=== PATIENT | male | born 1965 | race Caucasian/White ===

== ENCOUNTER → 2018-11-12 | Outpatient (CLI) | payer OTHER ==
[~2018-11-12] MED LIST: AMLO5TAB2 PO; CLIN300C3 PO; DIAZ10TA PO; DULO30CA PO; HYDR-3714 PO; HYDR12.56 PO; LISI1TAB6 PO; LISI20TA PO; MUPI22OI29 NS; OXYC-12 PO; ROPI2TAB4 PO; SULF-222 PO
--- NOTE | 2018-11-12 11:42 | Diagnostic Imaging Report ---
PROCEDURE: CT head and CT cervical spine without contrast. TECHNIQUE: Multiple contiguous axial images were obtained through the brain and cervical spine without the use of intravenous contrast. Sagittal and coronal reformations through the cervical spine were then performed. INDICATION: Head injury at midnight. Hit head now with neck pain and cannot turn head to the right. CORRELATION STUDY: CT head 02/15/2015 FINDINGS: CT HEAD: Ventricles and sulci are unremarkable. Normal sow white differentiation. No suggestion for edema. No intracranial hemorrhage or midline shift. The bony calvarium intact. There is significant mucosal thickening and air-fluid level at the left maxillary sinus. There is significant opacification multiple ethmoid air cells left greater than right. There is also significant mucosal thickening of the left frontal sinus. Sphenoid sinus relatively clear. Mastoid air cells appearing unremarkable. CT CERVICAL SPINE: Reformatted images are relatively normal in alignment to be present. There is no evidence for acute fracture. There is slight loss of height at the C4, C5 and C6 vertebral bodies as well as slight loss of height superior C7 vertebral body appearing to be nonacute and chronic. There is a fusion across the disc space and facet joints at the C2-C3 level with a unibody present. The odontoid intact. Multilevel disc space narrowing is present most pronounced C4-C5, C5-C6 and C6-C7 levels. Endplate spurring and osteophyte formation noted at C3-C4, C4-C5, C5-C6 and C6-C7 levels with some osteal encroachment upon the neural foramina greatest on the right. Additionally, there area scattered air is asymmetric hypertrophic facet arthropathy greatest on the right. There is presence of scattered bilateral cervical lymph nodes. The visualized lung apices are unremarkable. IMPRESSION: CT HEAD: 1. Negative for acute traumatic intracranial abnormality. 2. Rather extensive sinusitis disproportion greater left side. CT CERVICAL SPINE: 1. Negative for acute fracture or traumatic subluxation. 2. Rather pronounced multilevel cervical spondylosis along with hypertrophic facet arthropathy. This does result in some disproportionate mild foraminal narrowing on the right. Dictated by: Dictated on workstation # [id number]
== END ==
LOC: RAD 10:04
PROVIDERS: ATTEND Nurse Practitioner Family
DX: S09.90XA Unspecified injury of head, initial encounter (principal); J32.9 Chronic sinusitis, unspecified; M47.812 Spondylosis without myelopathy or radiculopathy, cervical region; M46.82 Other specified inflammatory spondylopathies, cervical region; M48.02 Spinal stenosis, cervical region; I10 Essential (primary) hypertension; V83.5XXA Driver of special industrial vehicle injured in nontraffic accident, initial encounter
CPT/HCPCS: 70450; 72125

== ENCOUNTER → 2019-11-17 | Outpatient (CLI) | payer OTHER ==
--- NOTE | 2019-11-17 10:44 | Diagnostic Imaging Report ---
INDICATION: Influenza. TIME OF EXAM: 10:31 a.m. COMPARISON: Correlation is made with prior chest from 01/12/2014. FINDINGS: Heart size is normal. There is a zone of linear density in the left base suggestive of atelectasis. No infiltrates are seen. The pulmonary vascularity is normal. No effusion or pneumothorax is identified. IMPRESSION: Left basilar subsegmental atelectasis. Dictated by: Dictated on workstation # [id number]
== END ==
LOC: RAD 10:06
PROVIDERS: ATTEND Family Medicine
DX: J98.11 Atelectasis (principal); J09.X2 Influenza due to identified novel influenza A virus with other respiratory manifestations
CPT/HCPCS: 71046

== ENCOUNTER → 2021-03-26 | Outpatient (CLI) | payer OTHER ==
--- NOTE | 2021-03-26 17:33 | Diagnostic Imaging Report ---
INDICATION: Cough and wheezing and dyspnea. PA and lateral chest obtained at 05:29 p.m. Heart and mediastinal silhouette are normal in appearance. There is hyperinflation compatible with COPD. There is some minimal left basilar atelectasis or scarring. There is no consolidation or pleural fluid or pneumothorax. IMPRESSION: Hyperinflation compatible with COPD with some minimal left basilar scarring or atelectasis. No consolidation or pleural fluid collection. Dictated by: Dictated on workstation # [id number]
== END ==
LOC: RAD 16:40
PROVIDERS: ATTEND Family Medicine
DX: J98.11 Atelectasis (principal)
CPT/HCPCS: 71046

== ENCOUNTER → 2022-02-15 | Outpatient (CLI) | payer OTHER ==
--- NOTE | 2022-02-15 15:01 | Diagnostic Imaging Report ---
PROCEDURE: US carotid duplex, bilateral. TECHNIQUE: Multiple real-time grayscale images were obtained over the carotid arteries in various projections, bilaterally. Additional spectral analysis and color Doppler duplex images were also obtained. INDICATION: Right carotid bruit. There is mild plaque in both carotid bulbs and right carotid bifurcation. Velocities are normal bilaterally. No velocity elevation or stenosis is seen. Both vertebral arteries show antegrade flow. IMPRESSION: Mild bilateral carotid plaque. There is no evidence of a hemodynamically significant stenosis. Parameters based on the consensus panel Laird-Scale and Doppler ultrasound criteria published July 2003, Radiology, Volume 229. DOPPLER (peak systolic velocity M/S Right Left CCA .97 1.22 ICA Proximal .81 .64 ICA Mid .71 .55 ICA Distal .58 .69 RATIO .83 .56 ECA 1.57 1.07 VERT .40 .51 Dictated by: Dictated on workstation # [id number]
== END ==
LOC: RAD 12:00
PROVIDERS: ATTEND Family Medicine
DX: I65.23 Occlusion and stenosis of bilateral carotid arteries (principal)
CPT/HCPCS: 93880

== ENCOUNTER → 2022-10-30 | Outpatient (CLI) | payer OTHER ==
--- NOTE | 2022-10-30 18:26 | Diagnostic Imaging Report ---
CLINICAL INDICATION: Patient status post fall with pain in the right anterior chest. EXAMS: Chest x-ray AP and lateral views. X-ray bilateral rib series. COMPARISONS: CT scan of the abdomen and pelvis without contrast dated 04/01/2015. FINDINGS: LUNGS/ PLEURA: Lungs are clear. There is no pneumothorax. There is no pleural effusion. MEDIASTINUM: Unremarkable. PULMONARY VASCULATURE: Unremarkable. HEART: Unremarkable. BONES/ EXTRATHORACIC SOFT TISSUE: Stable chronic compression deformity involving left side of the L2 vertebra. There are degenerative spurs involving the thoracic and lumbar spine. There are multiple calcifications overlying the bilateral renal shadows which is also seen on comparison CT scan. RIB SERIES: Unremarkable with no rib fracture or abnormality. IMPRESSION: 1: There is no radiographic evidence of acute cardiopulmonary process. 2: There are no rib fractures. 3: Multiple bilateral renal stones are again seen. 4: Stable chronic fracture of the L2 vertebra. Dictated by: Dictated on workstation # [id number]
== END ==
LOC: RAD 16:29
PROVIDERS: ATTEND Registered Nurse Critical Care Medicine
DX: N20.0 Calculus of kidney (principal); M25.512 Pain in left shoulder; W18.39XD Other fall on same level, subsequent encounter; Y92.093 Driveway of other non-institutional residence as the place of occurrence of the external cause; M70.21 Olecranon bursitis, right elbow; M25.721 Osteophyte, right elbow; G25.81 Restless legs syndrome; I10 Essential (primary) hypertension; Z87.442 Personal history of urinary calculi
CPT/HCPCS: 71111